=== PATIENT | male | born 1990 | race Caucasian/White ===

== ENCOUNTER → 2016-11-03 13:52 | Outpatient (CLI) | payer MEDICAID ==
[2016-01-11 07:00] VITALS: BMI 16.5
[~2016-11-03 13:52] MED LIST: CEREFOLIN TAB1 TAB PO; CORTEF10 MG PO; FLORINEF 0.1 M0.1 MG PO; FOLIC ACID1 MG PO; HYDROCODON-ACE1 EAC7 PO; HYDROCODONE-APA1 TAB PO; INDERAL10 MG PO; NORCO 7.5/325 T1 TA1 PO; OMEPRAZOLE20 M1 PO; SLOW-MAG 64 MG64 MG PO; TAPAZOLE 10 MG10 MG PO; TAPAZOLE 5 MG TA5 MG PO; VITAMIN B-1250 MG PO
== END | disposition home or self-care (01) ==
LOC: D.MRI 13:52
DX: M25.561 Pain in right knee (principal); M25.562 Pain in left knee

== ENCOUNTER 2018-01-30 12:06 | Outpatient (CLI) | payer OTHER ==
[~2018-01-30] VITALS: Ht 185.4 cm; Wt 59.1 kg
--- NOTE | ~2018-01-30 | HEMODYNAMI ---
PATIENT:YUSEF YARBROUGH MEDICAL RECORD: [id number] : 89 LOCATION:[facility] ADMISSION DATE: 01/30/18 Generatedon:01/30/201815:46 Patient name: YUSEF YARBROUGH Patient #: [id number] SSN: DO B: 1990 Date of study: 01/30/2018 Page: Of Hemodynamic Procedure Report Patient Data Patient Demographics Procedure consent was obtained First Name: YUSEF Gender: Male Last Name: ZENON : 1990 Middle Initial: EDWARD Age: 27 year(s) Patient #: [id number] Race: Unknown Additional ID: [id number] Contact details [address]: [address] [place] [address] [place] State: [place] City: [place] Zip code: [address] Admission Admission Data Admission Date: 01/30/2018 Admission Time: 12:06 Procedure Procedure Types Cath Procedure Diagnostic Procedure LHC LHC w/Coronaries Sedation Charges Moderate Sedation up to 15 minutes Procedure Description Procedure Date Procedure Date: 01/30/2018 Procedure Start Time: 15:24 Procedure End Time: 15:43 Procedure Staff Name Function Dioni Alcantara MD Performing Physician Charla Lucio RT Monitor Sana Davenport RT Scrub Nick Ho RN Nurse Procedure Data Cath Procedure Fluoroscopy Diagnostic fluoroscopy Total fluoroscopy Time: 4.8 time: 4.8 min min Diagnostic fluoroscopy Total fluoroscopy dose: 650 dose: 650 mGy mGy Contrast Material Contrast Material Type Amount (ml) Isovue 300 79 Entry Location Entry Primary Successful Side Size Upsize Upsize Entry Closure Mc ccessful Closure Location (Fr) 1 (Fr) 2 (Fr) Remarks Device Remarks Radial Right 6 Fr Mechanical artery Short Compression Estimated blood loss: 5 ml Diagnostic catheters Device Type Used For End Catheter Placement DIAGNOSTIC Mason 110cm Multi-vessel 5Fr catheter ([id number]) Angiography DIAGNOSTIC AR MOD 5Fr Right Coronary Catheter ([id number]) Angiography Procedure Complications No complications Procedure Medications Medication Administration Route Dosage Oxygen etCO2 Nasal cannula 2 l/min Lidocaine 2% added to field 20 Heparin Flush Bag added to field 2 bags (1000units/500ml NS) 0.9% NaCl I.V. 100 ml/hr Radial Cocktail added to field 1 syringe (Verapomil 2mg/Nitro 400mcg/Heparin 1500units) Versed I.V. 2 mg Fentanyl I.V. 100 mcg Versed I.V. 1 mg Fentanyl I.V. 50 mcg Versed I.V. 1 mg Fentanyl I.V. 50 mcg Versed I.V. 1 mg Fentanyl I.V. 50 mcg Hemodynamics Rest Heart Rate: 65 (bpm) Pressure Samples Time Site Value (mmHg) Purpose Heart Use Rate(bpm) 15:28 LV 141/-9,11 Snapshot 121 15:28 AO 91/62(70) Pullback 99 15:28 LV 119/-9,7 Pullback 99 Gradients Valve Time Site 1 Site 2 Mean SEP/DFP Peak To Heart Use (mmHg) (sec/min) Peak Rate (mmHg) (bpm) Aortic 15:28 LV AO 13 22 28 99 119/-9,7 91/62(70) Calculations Valve P-P Mean Valve Index Valve Source Name Gradient Area Flow (cm2) Aortic 28 13 28 13 Snapshots Pre Cath Intra NCS Post Cath Vital Signs Time Heart Resp SPO2 etCO2 NIBP Rhythm Pain Sedation Rate (ipm) (%) (mmHg) (mmHg) Status Level (bpm) 15:06:48 70 17 100 0 106/66(88) NSR 0 (11) 10(A) , No pain 15:10:51 75 17 100 28.3 114/62(83) NSR 0 (11) 10(A) , No pain 15:14:57 65 20 100 41.7 113/59(84) NSR 0 (11) 10(A) , No pain 15:19:05 60 13 99 49.1 111/56(79) NSR 0 (11) 10(A) , No pain 15:23:11 66 12 98 47.6 106/55(83) NSR 0 (11) 10(A) , No pain 15:27:17 103 17 99 40.9 109/54(92) NSR 0 (11) 10(A) , No pain 15:31:24 78 16 97 43.9 99/53(83) NSR 0 (11) 9(A) , No pain 15:35:28 71 14 98 43.1 105/54(79) NSR 0 (11) 9(A) , No pain 15:39:34 77 13 98 48.3 113/50(71) NSR 0 (11) 10(A) , No pain 15:43:42 66 12 98 49.8 109/56(82) NSR 0 (11) 10(A) , No pain Medications Time Medication Route Dose Verified Delivered Reason Notes Effectiveness by by 15:12:40 Oxygen etCO2 2 l/min Dioni Buffie used for Nasal Quinton Ho RN procedure cannula 15:12:57 Lidocaine 2% added 20ml Dioni Dioni for local to vial Quinton Alcantara MD anesthetic field 15:13:06 Heparin Flush added 2 bags Dioni Dioni used for Bag to Quinton Alcantara MD procedure (1000units/500ml field NS) 15:13:15 0.9% NaCl I.V. 100 Dioni Buffie Per ml/hr Quinton Ho RN physician 15:13:25 Radial Cocktail added 1 Dioni Dioni for (Verapomil to syringe Quinton Alcantara MD vasodilation 2mg/Nitro field 400mcg/Heparin 1500units) 15:15:32 Versed I.V. 2 mg Dioni Buffie for sedation Quinton Ho RN 15:15:41 Fentanyl I.V. 100 mcg Dioni Buffie for sedation Quinton Ho RN 15:23:27 Versed I.V. 1 mg Dioni Buffie for sedation Quinton Ho RN 15:23:30 Fentanyl I.V. 50 mcg Dioni Buffie for sedation Quinton Ho RN 15:29:06 Versed I.V. 1 mg Dioni Buffie for sedation Quinton Ho RN 15:29:09 Fentanyl I.V. 50 mcg Dioni Buffie for sedation Quinton Ho RN 15:38:15 Versed I.V. 1 mg Dioni Buffie for sedation Quinton Ho RN 15:38:18 Fentanyl I.V. 50 mcg Dioni Buffie for sedation Quinton Ho RN Procedure Log Time Note 15:00:17 Sana DAVIS(R) sent for patient. Start room use. 15:00:18 Time tracking: Regular hours (M-F 7:00 - 5:00) 15:00:22 Plan of Care:Hemodynamics will remain stable., Cardiac rhythm will remain stable., Comfort level will be maintained., Respiratory function will remain adequate., Patient/ family verbilizes understanding of procedure., Procedure tolerated without complication., Recovers from procedure without complications.. 15:05:38 Vital chart was started 15:06:06 Patient received from Pre/Post Procedure Room to [facility] 2 Alert and oriented. Tansferred to table in Supine position. 15:06:20 Warm blankets applied, and maryam hugger turned on for patient comfort. 15:06:22 Correct patient and procedure confirmed by team. 15:06:25 Signed procedure consent form obtained from patient. 15:06:28 ECG and BP/O2 sat monitors applied to patient. 15:07:45 Baseline sample Acquired. 15:08:14 Full Disclosure recording started 15:08:25 H&P Date Dictated: 01/30/2018 Within 30 days and on chart., H&P Addendum completed by physician on day of procedure. (MUST COMPLETE FOR ALL OUTPATIENTS). 15:08:27 Pre-procedure instructions explained to patient. 15:08:27 Pre-op teaching completed and patient verbalized understanding. 15:08:29 Family in waiting room. 15:08:30 Patient NPO since Midnight. 15:08:32 Is the patient allergic to Iodine/contrast media? No. 15:08:33 Was the patient premedicated? No 15:08:35 Is patient on blood thinner?No 15:09:13 Is patient on blood thinner?No 15:09:14 Patient diabetic? No. 15:09:17 Previous problem with sedation/anesthesia? No ? 15:09:19 Snore? No 15:09:20 Sleep apnea? No 15:09:21 Deviated septum? No 15:09:24 Opens mouth fully? Yes 15:09:25 Sticks out tongue? Yes 15:09:26 Airway obstruction? No ? 15:09:29 Dentures? No ? 15:10:22 Pre procedure: right dorsailis pedis pulse 2+ Normal; easily identifiable; not easily obliterated 15:10:27 Pre procedure: left dorsailis pedis pulse 2+ Normal; easily identifiable; not easily obliterated 15:10:29 Patient pain scale 0/10 ?. 15:10:34 IV patent on arrival in left forearm with 0.9% NaCl at O. 15:10:36 Lab results completed and on chart. 15:10:39 Right Radial & Right Groin area was prepped with chlora-prep and draped in sterile fashion 15:10:40 Alarms reviewed by R. N. 15:10:41 Sharps counted by scrub and verified by R.N. 15:12:40 Oxygen 2 l/min etCO2 Nasal cannula was administered by Nick Ho RN; used for procedure; 15:12:57 Lidocaine 2% 20ml vial added to field was administered by Dioni Alcantara MD; for local anesthetic; 15:12:59 Physician arrived 15:13:00 --------ALL STOP TIME OUT------ 15:13:00 Final Timeout: patient, procedure, and site verified with staff and physician. All members of the team are in agreement. 15:13:02 Right Radial & Right Groin site verified by team. 15:13:05 Physical assessment completed. ASA score P 2 - A patient with mild systemic disease as per Dioni Alcantara MD. 15:13:06 Heparin Flush Bag (1000units/500ml NS) 2 bags added to field was administered by Dioni Alcantara MD; used for procedure; 15:13:09 Sedation plan: IV Moderate Sedation Medication:Versed, Fentanyl 15:13:15 0.9% NaCl 100 ml/hr I.V. was administered by Nick Ho RN; Per physician; 15:13:25 Radial Cocktail (Verapomil 2mg/Nitro 400mcg/Heparin 1500units) 1 syringe added to field was administered by Dioni Alcantara MD; for vasodilation; 15:13:48 Use device set Radial Dx or PCI 15:13:49 ACIST Syringe (45119) opened to sterile field. 15:13:50 Medline Cath Pack ([id number]) opened to sterile field. 15:13:50 Bag Decanter (2002) opened to sterile field. 15:13:51 DIAGNOSTIC WIRE .035 260cm J wire (090547) opened to sterile field. 15:13:51 ACIST Hand Control (44919) opened to sterile field. 15:13:52 ACIST Manifold (08864) opened to sterile field. 15:13:53 Tegaderm 4 x 4 (1626W) opened to sterile field. 15:13:55 SHEATH 6FR Slender (41-3316) opened to sterile field. 15:15:32 Versed 2 mg I.V. was administered by Nick Ho RN; for sedation; 15:15:41 Fentanyl 100 mcg I.V. was administered by Nick Ho RN; for sedation; 15:18:24 Zero performed for pressure channel P1 15:23:27 Versed 1 mg I.V. was administered by Nick Ho RN; for sedation; 15:23:30 Fentanyl 50 mcg I.V. was administered by Nick Ho RN; for sedation; 15:24:06 Procedure started. 15:24:10 Local anesthetic to right radial artery with Lidocaine 2% by Dioni Alcantara MD.INITIAL ACCESS ONLY 15:24:18 A 6 Fr Short sheath was inserted into the Right Radial artery 15:26:57 A DIAGNOSTIC Mason 110cm 5Fr catheter ([id number]) was advanced over the wire and used for Multi-vessel Angiography. 15:28:04 LV hemodynamics recorded. 15:28:06 LV gram done using CABRERA 15:28:08 Injector settings: Ml/sec: 5, Volume: 15, 15:28:39 EF : 60 % 15:29:06 Versed 1 mg I.V. was administered by Nick Ho RN; for sedation; 15:29:09 Fentanyl 50 mcg I.V. was administered by Nick Ho RN; for sedation; 15:29:22 LCA angiography performed. 15:29:24 Injector settings: Ml/sec: 3, Volume: 6, 15:30:45 RCA angiography performed. 15:32:00 Catheter removed. 15:32:36 A DIAGNOSTIC AR MOD 5Fr Catheter ([id number]) was advanced over the wire and used for Right Coronary Angiography. 15:34:46 RCA angiography performed. 15:34:48 Injector settings: Ml/sec: 3, Volume: 6, 15:38:15 Versed 1 mg I.V. was administered by Nick Ho RN; for sedation; 15:38:18 Fentanyl 50 mcg I.V. was administered by Nick Ho RN; for sedation; 15:40:17 Catheter removed. 15:41:06 TR BAND Standard ([id number]) opened to sterile field. 15:41:25 Sheath removed intact; hemostasis achieved with Mechanical Compression to the Right Radial artery. 15:41:27 Procedure ended.(Physican Out) 15:41:51 Fluoroscopy time 04.80 minutes. 15:41:56 Fluoroscopy dose: 650 mGy 15:41:56 Flurop Dose total: 650 15:42:30 Contrast amount:Isovue 300 79ml. 15:42:32 Sharps counted by scrub and verified by R.N. 15:42:38 TR band inflated with 10cc of air. 15:42:40 Insertion/operative site no bleeding no hematoma. 15:42:52 Post right radial artery:stable 15:42:53 Post Procedure Pulses reassessed and unchanged 15:42:56 Post procedure rhythm: unchanged. 15:42:59 Estimated blood loss: 5 ml 15:43:01 Post procedure instruction explained to patient.Patient verbalizes understanding. 15:43:01 Patient needs reinforcement of post procedure teaching. 15:43:17 Procedure type changed to Cath procedure, Diagnostic procedure, LHC, LHC w/Coronaries, Sedation Charges, Moderate Sedation up to 15 minutes 15:43:18 Procedure and supply charges have been captured, reviewed, submitted and are correct. 15:43:21 Procedure Complication : No complications 15:43:24 Vital chart was stopped 15:43:24 See physician's report for complete and final results. 15:43:27 Report given to Pre/Post Procedure Room. 15:43:30 Patient transfered to Pre/Post Procedure Room with Stretcher. 15:43:33 Procedure ended. 15:43:33 Full Disclosure recording stopped 15:43:36 End room use (Document Last) Device Usage Item Name Manufacture Quantity Catalog Hospital Part Current Minimal Lot# / Number Charge Number Stock Stock Serial# Code ACIST Acist 1 64800 706268 587712 500784 20 Syringe TrialScope (03390) Systems Inc Medline Medline 1 [id number] 026655 61352 313847 5 Cath Pack ([id number]) Bag Microtek 1 831210 96850 755643 5 Decanter Medical Inc. () DIAGNOSTIC St Mehran 1 072122 271085 969937 711888 30 WIRE .035 260cm J wire (814701) ACIST Hand Acist 1 93660 702113 821275 686707 5 Control Medical (09307) Systems Inc ACIST Acist 1 54528 241878 367420 898302 5 Manifold Medical (90293) Systems Inc Tegaderm 4 3M 1 1626W 730381 096127 012830 5 x 4 (1626W) SHEATH 6FR Terumo 1 [id number] 794267 520088 988779 5 Slender (801060) DIAGNOSTIC Terumo 1 40-6803 912770 884305 197818 5 Mason 110cm 5Fr catheter (299819) DIAGNOSTIC Cardinal 1 [id number] 007020 804387 364383 15 AR MOD 5Fr Health Catheter (078105Q) TR BAND Terumo 1 [id number] 426845 279297 232175 40 Standard ([id number]) Signature Audit Star Stage Time Signature Unsigned Intra-Procedure 01/30/2018 Charla Lucio 3:46:07 PM RT(R) Signatures Monitor : Charla Lucio RT Signature : Date : Time : [place] [id number] [facility] [place] [address]
[2018-01-30 12:41] VITALS: BP 118/74; Ht 185.4 cm; Wt 59.1 kg
[2018-01-30 12:44] LABS: BASOPHILS 0.8 % (0-2); EOSINOPHILS 4.5 % (0-7); HEMATOCRIT 43.6 % (42.0-54.0); HEMOGLOBIN 15.5 g/dL (13.5-17.5); LYMPHOCYTES 39.2 % (15-50); MCH 31.7 pg (26.0-34.0); MCHC 35.6 g/dL (31.0-37.0); MCV 89.2 fL (80.0-100.0); MEAN PLATELET VOLUME 11.5 fL (7.4-10.4); MONOCYTES 10.1 % (2-11); NEUTROPHILS 45.4 % (40-80); PLATELET COUNT 147 10x3/uL (130-400); RBC 4.89 10x6/uL (4.20-6.10); RDW 12.5 % (11.5-14.5); WBC 3.6 10x3/uL (4.8-10.8)
[2018-01-30 12:54] LABS: CALC OSMOLALITY 280 mosm/kg (275-300); CALCIUM 8.8 mg/dL (8.5-10.1); CHLORIDE - SERUM 105 mmol/L (98-107); CREATININE - SERUM 0.8 mg/dL (0.6-1.3); GLUCOSE 86 mg/dL (74-106); POTASSIUM - SERUM 3.8 mmol/L (3.5-5.1); SODIUM 142 mmol/L (136-145); UREA NITROGEN 10 mg/dL (7-18); eGFR NON AFRICAN AMERICAN > 90 mL/min (90-120)
== END 2018-01-30 18:20 | disposition home or self-care (01) ==
LOC: D.CATH 12:06
PROVIDERS: Internal Medicine Cardiovascular Disease
DX: I20.9 Angina pectoris, unspecified (principal); Z01.812 Encounter for preprocedural laboratory examination

== ENCOUNTER 2018-01-31 16:38 | Emergency (ER) | payer OTHER ==
[~2018-01-31] VITALS: Ht 185.4 cm; Wt 59.1 kg
[2018-01-31 16:40] VITALS: Ht 185.4 cm; Wt 59.1 kg
[2018-01-31 17:12] LABS: BASOPHILS 1.1 % (0-2); EOSINOPHILS 5.4 % (0-7); HEMOGLOBIN 15.2 g/dL (13.5-17.5); LYMPHOCYTES 35.2 % (15-50); MCH 31.4 pg (26.0-34.0); MCHC 35.3 g/dL (31.0-37.0); MCV 88.8 fL (80.0-100.0); MONOCYTES 10.8 % (2-11); NEUTROPHILS 47.5 % (40-80); PLATELET COUNT 127 10x3/uL (130-400); RBC 4.84 10x6/uL (4.20-6.10); RDW 12.5 % (11.5-14.5); WBC 3.7 10x3/uL (4.8-10.8)
[2018-01-31 17:46] LABS: ALBUMIN 4.1 g/dL (3.4-5.0); ALKALINE PHOSPHATASE 66 U/L (46-116); ALT (SGPT) 17 U/L (10-68); CALC OSMOLALITY 282 mosm/kg (275-300); CARBON DIOXIDE 30.7 mmol/L (21.0-32.0); CHLORIDE - SERUM 105 mmol/L (98-107); CREATININE - SERUM 0.7 mg/dL (0.6-1.3); GLUCOSE 93 mg/dL (74-106); POTASSIUM - SERUM 4.1 mmol/L (3.5-5.1); PROTEIN - SERUM 7.3 g/dL (6.4-8.2); SODIUM 143 mmol/L (136-145); eGFR NON AFRICAN AMERICAN > 90 mL/min (90-120)
[2018-01-31 17:54] LABS: PRO BNP 99 pg/mL (0-125)
[2018-01-31 17:55] LABS: UREA NITROGEN 7 mg/dL (7-18)
[2018-01-31 18:30] VITALS: BP 110/70
== END 2018-01-31 18:20 | disposition home or self-care (01) ==
LOC: D.ER 16:38
PROVIDERS: Family Medicine
DX: R07.9 Chest pain, unspecified (principal); I44.7 Left bundle-branch block, unspecified

== ENCOUNTER → 2019-02-21 13:41 | Outpatient (CLI) | payer OTHER ==
[2018-01-31 16:40] VITALS: BMI 17.1
[2019-02-21 14:31] LABS: EOSINOPHILS 3.3 % (0-7); HEMATOCRIT 43.2 % (42.0-54.0); HEMOGLOBIN 15.5 g/dL (13.5-17.5); LYMPHOCYTES 32.6 % (15-50); MCH 32.1 pg (26.0-34.0); MCHC 35.9 g/dL (31.0-37.0); MCV 89.4 fL (80.0-100.0); MEAN PLATELET VOLUME 10.4 fL (7.4-10.4); MONOCYTES 9.8 % (2-11); NEUTROPHILS 53.3 % (40-80); PLATELET COUNT 152 10x3/uL (130-400); RBC 4.83 10x6/uL (4.20-6.10); RDW 12.5 % (11.5-14.5); WBC 4.2 10x3/uL (4.8-10.8)
[2019-02-21 14:46] LABS: APTT 29.3 SECONDS (22.8-39.4)
[2019-02-21 14:47] LABS: INR 1.05 (0.85-1.17); PROTIME 13.7 SECONDS (11.6-15.0)
[2019-02-21 14:51] LABS: CALC OSMOLALITY 289 mosm/kg (275-300); CALCIUM 8.8 mg/dL (8.5-10.1); CARBON DIOXIDE 33.6 mmol/L (21.0-32.0); CHLORIDE - SERUM 107 mmol/L (98-107); CREATININE - SERUM 0.7 mg/dL (0.6-1.3); GLUCOSE 75 mg/dL (74-106); MAGNESIUM - SERUM 2.1 mg/dL (1.8-2.4); SODIUM 146 mmol/L (136-145); UREA NITROGEN 13 mg/dL (7-18); eGFR NON AFRICAN AMERICAN > 90 mL/min (90-120)
== END | disposition home or self-care (01) ==
LOC: D.LAB 13:41
DX: I47.1 Supraventricular tachycardia (principal)

== ENCOUNTER 2019-11-29 18:38 | Emergency (ER) | payer OTHER ==
[~2019-11-29] VITALS: Ht 185.4 cm; Wt 61.4 kg
[~2019-11-29 18:38] MED LIST changes: +PROTONIX40 MG PO
[2019-11-29 19:14] VITALS: BP 138/73; Ht 185.4 cm; Wt 61.4 kg
== END 2019-11-29 22:55 | disposition left against medical advice (07) ==
LOC: D.ER 18:38
DX: R11.10 Vomiting, unspecified (principal)